=== PATIENT | male | born 1980 | race Caucasian/White ===

== ENCOUNTER 2018-01-30 08:52 | Emergency (ER) | payer OTHER ==
[2018-01-30 09:04] VITALS: BP 116/77
--- NOTE | 2018-01-30 09:34 | ED ---
Throat Pain/Nasal Congestion - HPI Summary HPI Summary: Patient presents with intermittent sore throat 6 weeks. He reports this sometimes happens to him this time of year however doesn't usually last this long. He has had some mild nasal congestion at times but no iker sneezing coughing sinus congestion or ear pain. He is able to eat and drink without difficulty and admits when his throat is worse, soup helps. He has not taken any medications for this and has not tried any other remedies such as throat gargles nasal rinses etc. He does admit he has multiple small children in the home or back to school in bringing home illnesses as of late. She denies iker fever, chills, nausea, vomiting rash, headache, neck stiffness, however he has had some loose stools intermittently and legs have been achy at times. Otherwise, he is sleeping well and no report of unintentional weight changes or night sweats. - History of Current Complaint Chief Complaint: UCGeneralIllness Time Seen by Provider: 01/30/18 09:06 Hx Obtained From: Patient - Allergies/Home Medications Allergies/Adverse Reactions: Allergies Allergy/AdvReac Type Severity Reaction Status Date / Time No Known Allergies Allergy Verified 01/30/18 09:04 Home Medications: Home Medications NK [No Home Medications Reported] 01/30/18 [History Confirmed 01/30/18] PMH/Surg Hx/FS Hx/Imm Hx Previously Healthy: Yes Endocrine/Hematology History: Denies: Hx Thyroid Disease, Hx Anemia, Autoimmune Disease Respiratory History: Reports: Hx Seasonal Allergies - Fall - Surgical History Surgery Procedure, Year, and Place: dental implant jaw fx Infectious Disease History: No Infectious Disease History: Denies: Traveled Outside the [place] in Last 30 Days - Social History Occupation: Employed Full-time - solution coordinator Lives: With Family - and kids Alcohol Use: Weekly - 2 x week Hx Substance Use: No Substance Use Type: Reports: None Hx Tobacco Use: No Smoking Status (MU): Never Smoked Tobacco Review of Systems Constitutional: Negative Eyes: Negative Positive: Sore Throat. Negative: Epistaxis, Dental Pain, Ear Ache, Nasal Discharge Cardiovascular: Negative Respiratory: Negative Gastrointestinal: Negative Positive: no symptoms reported Positive: Myalgia - LE's at times - none today Skin: Negative Neurological: Negative Psychological: Normal All Other Systems Reviewed And Are Negative: Yes Physical Exam Triage Information Reviewed: Yes Vital Signs On Initial Exam: Initial Vitals Temp Pulse Resp BP Pulse Ox 96.6 F 73 16 116/77 100 01/30/18 09:00 01/30/18 09:00 01/30/18 09:00 01/30/18 09:00 01/30/18 09:00 Vital Signs Reviewed: Yes Appearance: Positive: Well-Appearing, No Pain Distress, Well-Nourished Skin: Positive: Warm, Skin Color Reflects Adequate Perfusion, Dry - no rash Head/Face: Positive: Normal Head/Face Inspection Eyes: Positive: Normal, EOMI, Conjunctiva Clear. Negative: Conjunctiva Inflammed, Discharge ENT: Positive: Hearing grossly normal, TMs normal, Uvula midline, Other - cobblestoning posterior pharynx. Negative: Pharyngeal erythema, Nasal congestion, Nasal drainage, Tonsillar swelling, Tonsillar exudate, Muffled voice , Sinus tenderness Dental: Negative: Abscess @ Neck: Positive: Supple, Nontender, No Lymphadenopathy Respiratory/Lung Sounds: Positive: Clear to Auscultation, Breath Sounds Present. Negative: Rales, Rhonchi, Wheezes Cardiovascular: Positive: Normal, RRR, S1, S2 Abdomen Description: Positive: Nontender, No Organomegaly, Soft Bowel Sounds: Positive: Present Musculoskeletal: Positive: Normal, Strength/ROM Intact Neurological: Positive: Normal, Sensory/Motor Intact, Alert, Oriented to Person Place, Time, CN Intact II-III Psychiatric: Positive: Normal - concerned but calm and cooperative Diagnostics - Vital Signs Vital Signs Temp Pulse Resp BP Pulse Ox 01/30/18 09:00 96.6 F 73 16 116/77 100 - Laboratory Lab Results: Lab Results 01/30/18 Range/Units 09:07 Group A Strep Rapid Negative (Negative) Lab Statement: Any lab studies that have been ordered have been reviewed, and results considered in the medical decision making process. EENT Course/Dx - Course Course Of Treatment: Rapid strep neg. Will test for mono and call w/ test results. Otherwise, suspect allergies along w/ recurring viral illness exposures in his household. Advised if sx linger beyond another couple of weeks , f/u is warranted to r/o other causes (ie. HPV infection, etc) - Diagnoses Provider Diagnoses: Pharyngitis Discharge - Sign-Out/Discharge Documenting (check all that apply): Patient Departure All imaging exams completed and their final reports reviewed: No Studies - Discharge Plan Condition: Stable Disposition: HOME Patient Education Materials: Pharyngitis (ED) Referrals: No Primary Care Phys,NOPCP [Primary Care Provider] - [facility] [Outside] Additional Instructions: The definitive cause of your sore throat was not identified today however strep throat was ruled out. An additional test of mononucleosis was also drawn and results will return in 1 week. If you do not hear from us with results, please call for an update. In the meantime you may try the following remedies to aid with your symptoms: Nasal wash (netti pot or saline spray) & salt water throat gargles 2 x day Drink you body weight in ounces of water every day Sleep 8+ hours per night Avoid Dairy and sugar Hot herbal/decaf tea with lemon & honey Chicken broth (preferably organic, free range chicken) Humidifier in house, but especially near bed at night Keep home temperature at 68F or less to reduce dryness Use cough drops/throat lozenges Try a facial steam with or without eucalyptus essential oil or Gonzalo's Vapor rub for congestion Avoid smoke, candles, perfumes, colognes, scented soaps/detergents , air fresheners and cleaning chemicals as these can cause airway irritation and trigger coughing Start Vitamin D3 5000iu and Vitamin C 1000mg every day x winter months *If all tests are negative and symptoms persist, follow-up with your PCP. *If you develop difficulty breathing or swallowing, go to the ED - Billing Disposition and Condition Condition: STABLE Disposition: Home
== END 2018-01-30 09:42 | disposition home or self-care (01) ==
LOC: UCEAST 08:52
DX: J02.9 Acute pharyngitis, unspecified (principal)
CPT/HCPCS: 36415; 86308; 87651; 99201; G0463

== ENCOUNTER 2018-05-10 11:58 | Emergency (ER) | payer OTHER ==
--- NOTE | 2018-05-10 12:20 | UC ---
Cardiac HPI - HPI Summary HPI Summary: 37-year-old male was with a chief complaint of chest pain. Started yesterday. Started when he was lifting one of his children. Pain started in the thoracic back and since then has spread to the sternum. It's intermittent. Does not radiate to the arm. he is not nauseous. Pain is worse with picking up things and moving things. Overnight during rest the pain was better. There is a positive family history of cardiac problems. He does not have high blood pressure high cholesterol or diabetes. Just prior to coming he started feeling lightheaded. Pain is 5 out of 10 at its worst. Describes it as a pressure. Denies any abdominal pain. - History of Current Complaint Stated Complaint: CONGESTION, LEG WEAKNESS Time Seen by Provider: 05/10/18 12:04 - Allergy/Home Medications Allergies/Adverse Reactions: Allergies Allergy/AdvReac Type Severity Reaction Status Date / Time No Known Allergies Allergy Verified 05/10/18 12:22 PMH/Surg Hx/FS Hx/Imm Hx Previously Healthy: Yes - Surgical History Surgical History: Yes Surgery Procedure, Year, and Place: dental implant jaw fx - Family History Known Family History: Positive: Cardiac Disease - Social History Alcohol Use: Weekly - 2 x week Substance Use Type: None Smoking Status (MU): Never Smoked Tobacco Review of Systems All Other Systems Reviewed And Are Negative: Yes Constitutional: Positive: Other - LIGHTHEADEDNESS Skin: Positive: Negative Eyes: Positive: Negative ENT: Positive: Negative Respiratory: Positive: Negative Cardiovascular: Positive: Chest Pain Gastrointestinal: Positive: Negative Motor: Positive: Negative Neurovascular: Positive: Negative Musculoskeletal: Positive: Negative Neurological: Positive: Negative Psychological: Positive: Negative Is Patient Immunocompromised?: No Physical Exam Triage Information Reviewed: Yes Appearance: Well-Appearing, No Pain Distress, Well-Nourished Vital Signs Reviewed: Yes Eye Exam: Normal Eyes: Positive: Conjunctiva Clear Neck: Positive: Supple Respiratory: Positive: Lungs clear, Normal breath sounds, No respiratory distress Cardiovascular: Positive: RRR Abdomen Description: Positive: Nontender, Soft Bowel Sounds: Positive: Present Musculoskeletal Exam: Normal Musculoskeletal: Positive: Strength Intact, ROM Intact, No Edema, Other: - NO CALF TENDERNESS Neurological Exam: Normal Neurological: Positive: Alert, Muscle Tone Normal Psychological Exam: Normal Psychological: Positive: Age Appropriate Behavior Skin Exam: Normal Diagnostics - EKG Cardiac Rate: NL - AT 12:13 Cardiac Rhythm: Sinus: Normal - 76BPM Ectopy: None ST Segment: Normal - Assessment/Plan Course Of Treatment: I reviewed the EKG results with the patient. I do not see any ischemic changes on the EKG. Vital signs stable. We discussed going to the emergency department department by ambulance versus private car. Patient prefers to go by private car. - Clinical Impression Provider Diagnosis: Chest pain Discharge - Sign-Out/Discharge Documenting (check all that apply): Patient Departure All imaging exams completed and their final reports reviewed: No Studies - Discharge Plan Condition: Stable Disposition: HOME-RECOMMEND TO ED Patient Education Materials: Chest Pain (ED) Referrals: Raciel Guaman MD [Primary Care Provider] - Additional Instructions: GO DIRECTLY TO THE EMERGENCY DEPARTMENT FOR FURTHER EVALUATION. - Billing Disposition and Condition Condition: STABLE Disposition: Home-Recommend to ED
[2018-05-10 12:23] VITALS: BP 147/85
== END 2018-05-10 12:25 | disposition home health service (06) ==
LOC: UCEAST 11:58
DX: R07.9 Chest pain, unspecified (principal); M54.6 Pain in thoracic spine; R42 Dizziness and giddiness
CPT/HCPCS: 93005; 99212; G0463

== ENCOUNTER 2018-05-10 12:54 | Emergency (ER) | payer OTHER ==
[2018-05-10] MEDS ORDERED: Aspirin 81 mg CHEW TAB* 81 MG TAB.CHEW PO ONE (13:17)
--- NOTE | 2018-05-10 13:21 | ED ---
HPI Chest Pain - HPI Summary HPI Summary: This patient is a 37 year old M presenting to [facility] from urgent care with a chief complaint of intermittent mid-sternal chest pressure that began yesterday. The patient rates the pain 4/10 in severity. Symptoms aggravated by nothing. Symptoms alleviated by nothing. Patient reports dizziness and back pain. Patient states he has had similar symptoms previously. Patient states he has a family history of GERD. - History of Current Complaint Chief Complaint: EDChestPainROMI Time Seen by Provider: 05/10/18 13:12 Hx Obtained From: Patient Onset/Duration: Started Days Ago, Atraumatic, Still Present Timing: Constant Initial Severity: Moderate Current Severity: Moderate Pain Intensity: 4 Pain Scale Used: 0-10 Numeric Chest Pain Location: Mid Sternal Character: Pressure/Squeezing Aggravating Factor(s): Nothing Alleviating Factor(s): Nothing Associated Signs and Symptoms: Positive: Other: - Positive back pain and dizziness - Allergy/Home Medications Allergies/Adverse Reactions: Allergies Allergy/AdvReac Type Severity Reaction Status Date / Time No Known Allergies Allergy Verified 05/10/18 13:03 PMH/Surg Hx/FS Hx/Imm Hx Previously Healthy: No Endocrine/Hematology History: Denies: Hx Thyroid Disease, Hx Anemia Respiratory History: Reports: Hx Seasonal Allergies - Fall - Surgical History Surgery Procedure, Year, and Place: dental implant jaw fx Infectious Disease History: No Infectious Disease History: Denies: Traveled Outside the [place] in Last 30 Days - Family History Known Family History: Positive: Cardiac Disease - Uncle - [place] at 50 years old - Social History Occupation: Employed Full-time Lives: With Family Alcohol Use: Weekly - 2 x week Hx Substance Use: No Substance Use Type: Reports: None Hx Tobacco Use: No Smoking Status (MU): Never Smoked Tobacco Review of Systems Positive: Chest Pain Positive: Other - Positive back pain Psychological: Other - Positive dizziness All Other Systems Reviewed And Are Negative: Yes Physical Exam - Summary Physical Exam Summary: VITAL SIGNS: Reviewed. GENERAL: Patient is a well-developed and nourished male who is lying comfortable in the stretcher. Patient is not in any acute respiratory distress. HEAD AND FACE: No signs of trauma. No ecchymosis, hematomas or skull depressions. No sinus tenderness. EYES: PERRLA, EOMI x 2, No injected conjunctiva, no nystagmus. EARS: Hearing grossly intact. Ear canals and tympanic membranes are within normal limits. MOUTH: Oropharynx within normal limits. NECK: Supple, trachea is midline, no adenopathy, no JVD, no carotid bruit, no c- spine tenderness, neck with full ROM. CHEST: Symmetric, no tenderness at palpation LUNGS: Clear to auscultation bilaterally. No wheezing or crackles. CVS: Regular rate and rhythm, S1 and S2 present, no murmurs or gallops appreciated. ABDOMEN: Soft, non-tender. No signs of distention. No rebound no guarding, and no masses palpated. Bowel sounds are normal. EXTREMITIES: FROM in all major joints, no edema, no cyanosis or clubbing. NEURO: Alert and oriented x 3. No acute neurological deficits. Speech is normal and follows commands. SKIN: Dry and warm Triage Information Reviewed: Yes Vital Signs On Initial Exam: Initial Vitals Temp Pulse Resp BP Pulse Ox 97.9 F 79 16 148/88 100 05/10/18 13:00 05/10/18 13:00 05/10/18 13:00 05/10/18 13:00 05/10/18 13:00 Vital Signs Reviewed: Yes Diagnostics - Vital Signs Vital Signs Temp Pulse Resp BP Pulse Ox 05/10/18 13:00 97.9 F 79 16 148/88 100 - Laboratory Result Diagrams: 05/10/18 13:33 05/10/18 13:33 Lab Statement: Any lab studies that have been ordered have been reviewed, and results considered in the medical decision making process. - Radiology Chest XR Radiology Interpretation Completed By: Radiologist Summary of Radiographic Findings: CXR reveals, per radiologist, negative exam. ED physician has reviewed this radiology report. - EKG 1311 Cardiac Rate: NL EKG Rhythm: Sinus Rhythm - 89 BPM Summary of EKG Findings: An EKG taken at 1311 reveals normal sinus rhythm at [address] elevations. Re-Evaluation - Re-Evaluation First Eval Re-Evaluation Time: 16:10 Change: Improved Comment: Patient reports he currently does not have pain Chest Pain Course/Dx - Course Assessment/Plan: This patient is a 37 year old M presenting to [facility] from urgent care with a chief complaint of intermittent mid-sternal chest pressure that began yesterday. The patient rates the pain 4/10 in severity. Symptoms aggravated by nothing. Symptoms alleviated by nothing. Patient reports dizziness and back pain. Patient states he has had similar symptoms previously. Patient states he has a family history of GERD. Blood work without any significant abnormality, 2 troponins 4 hours apart lasting 0.00. EKG shows normal sinus rhythm without any step elevations. Chest x-ray impression: Negative for acute pathology. In the ED course the patient reports that the symptoms have resolved. Patient reports that all symptoms have resolved. Because the patient has no significant comorbidities and no family history of cardiovascular disease at his age the patient will be discharged home with follow up of PCP. I discussed all the findings and test results with the patient. Patient was instructed to return to the emergency room immediately if any of the symptoms return or worsens. Patient understands and agrees. Plan of care was discussed with the patient and patient understands and agrees. All questions were answered at patient satisfaction. There were no further complaints or concerns. PE before discharge: CVS: S1 and S2 present. No murmurs appreciated. Abdominal exam before discharge: Soft, non-tender. No signs of distention. No rebound no guarding, and no masses palpated. Bowel sounds are normal. Patient is alert and oriented x 3. Patient is hemodynamically stable. - Chest Pain Differential Diagnosis/HQI/PQRI: Acute [place], ACS, Angina, CHF, Chest Wall, GI Disease, Lower Respiratory Infection - Diagnoses Provider Diagnoses: Atypical chest pain Discharge - Sign-Out/Discharge Documenting (check all that apply): Patient Departure - Discharge home - Discharge Plan Condition: Stable Disposition: HOME Patient Education Materials: Chest Pain (ED) Referrals: Raciel Guaman MD [Primary Care Provider] - 2 Days Additional Instructions: RETURN TO THE EMERGENCY DEPARTMENT FOR NEW OR WORSENING SYMPTOMS - Billing Disposition and Condition Condition: STABLE Disposition: Home - Attestation Statements Document Initiated by Scribe: Yes Documenting Scribe: Isa Daniels Provider For Whom Stephanie is Documenting (Include Credential): Dr. Yovany Robertson MD Scribe Attestation: Isa Andrea scribed for Dr. Yovany Robertson MD on 05/11/18 at 205. Scribe Documentation Reviewed: Yes Provider Attestation: The documentation as recorded by the Isa wyatt accurately reflects the service I personally performed and the decisions made by me, Dr. Yovany Robertson MD Status of Scribe Document: Viewed
[2018-05-10 13:43] LABS: ABS Basophils 0.1 10^3/ul (0-0.2); ABS Eosinophils 0 10^3/ul (0-0.6); ABS Lymphocytes 1.9 10^3/ul (1.0-4.8); ABS Monocytes 0.4 10^3/ul (0-0.8); ABS Neutrophils 7.7 10^3/ul (1.5-7.7); ABS Nucleated RBC 0 10^3/ul; Eosinophil % 0.5 %; Hematocrit 45 % (42-52); Hemoglobin 15.4 g/dl (14.0-18.0); Lymphocyte % 18.6 %; Mean Corpuscular HGB Conc 34 g/dl (31-36); Mean Corpuscular Hemoglobin 30 pg (27-31); Mean Corpuscular Volume 89 fL (80-94); Mean Platelet Volume 9.1 fL (7.4-10.4); Nucleated Red Blood Cells % 0.1; Platelet Count 242 10^3/ul (150-450); Red Blood Count 5.09 10^6/ul (4.00-5.40); Red Cell Distribution Width 13 % (10.5-15); White Blood Count 10.1 10^3/ul (3.5-10.8)
[2018-05-10 14:06] LABS: Albumin 5.1 g/dL (3.2-5.2); BUN/Creatinine Ratio 14.3 (8-20); Calcium 9.9 mg/dL (8.6-10.3); EGFR Non-African American 112.5 (>60); Globulin 2.5 g/dL (2-4); Magnesium 2.1 mg/dL (1.9-2.7); Potassium 3.9 mmol/L (3.5-5.0); Total Bilirubin 0.5 mg/dL (0.2-1.0); Total Protein 7.6 g/dL (6.4-8.9)
[2018-05-10 14:36] LABS: TSH (Thyroid Stimulating Horm) 0.99 mcIU/mL (0.34-5.60)
[2018-05-10 17:56] VITALS: BP 137/89
== END 2018-05-10 17:56 | disposition home or self-care (01) ==
LOC: ED 12:54
DX: R07.89 Other chest pain (principal); Z82.49 Family history of ischemic heart disease and other diseases of the circulatory system
CPT/HCPCS: 36415; 71046; 80053; 82550; 82553; 83605; 83735; 83880; 84443; 84484; 85025; 85730; 93005; 99282; A9270-GY